=== PATIENT | female | born 1970 | race African-American/Black ===

== ENCOUNTER → 2016-12-29 | Outpatient (CLI) | payer OTHER ==
[~2016-12-29] VITALS: Ht 175.3 cm; Wt 116.1 kg
[~2016-12-29] MED LIST: ADVAIR HFA 230M12 GM INH; JANUVIA50 MG PO; NEURONTIN 300300 M1 PO; PROAIR HFA8.5 GM INH; SAVELLA25 MG PO; VALSARTAN-HCTZ1 EAC1 PO; ZOLPIDEM TARTRA10 MG PO
--- NOTE | ~2016-12-29 | HPC ---
[facility] [place] [address] PAIN MANAGEMENT CONSULTATION Name: YANA PLASENCIA Room #: REG [facility] Aleena#: [id number] Admission: 12/29/16 Attend Phys: Caesar Devine DO Discharge: Date of : 66 Report #: [id number] THIS REPORT FOR: //name// CC: Antionette Devine DATE OF SERVICE: 12/29/2016 The patient is a pleasant 46-year-old female seen in consultation 12/05/2016 diagnosed with symptomatic cervical radiculopathy. She was given 1 cervical epidural injection at that time. She had good transient relief with the injection, but symptoms are recurring. Pain is in the neck, shoulder and arm. PHYSICAL EXAMINATION: Shows positive Lhermitte's. Vital signs are stable as noted in the EMR. There are no recent diagnostic studies available to evaluate. ASSESSMENT: Symptomatic cervical radiculopathy. RECOMMENDATION: Discussion with the patient today therapeutic options. She elected to proceed with repeat epidural injection under fluoroscopy today. I will order another MRI of the cervical spine. Will follow up in approximately 2-3 weeks to evaluate efficacy of interventional therapy and to review diagnostic findings. ASSESSMENT: Symptomatic cervical radiculopathy. PROCEDURE: Cervical epidural injection under fluoroscopy. PROCEDURE: Cervical epidural steroid injection under fluoroscopy. PROCEDURE NOTE: After written and informed consent was obtained including risk of dural puncture, spinal cord trauma, paralysis and increased pain, the patient was taken to the fluoroscopy suite and placed in the prone position, with appropriate abdominal bolstering, neck was flexed, palms under the thighs. Skin was prepped with ChloraPrep. Sterile draping was applied. Skin wheal with 1% Xylocaine was raised. A 22-gauge 3-1/2 inch epidural Tuohy needle was placed via a midline approach at the C7-T1 interspace, advanced under biplanar fluoroscopy using continuous loss of resistance. With appropriate loss of resistance at the expected depth on lateral view, the glass loss of resistance syringe was disconnected. A low volume extension tubing was connected to the needle and a 5 mL syringe. Negative aspiration for cerebrospinal fluid or blood was noted. A 1 mL of Omnipaque was injected which showed spread within the epidural space on biplanar fluoroscopy. This was followed with 80 mg of triamcinolone plus 1 mL of 1.5% preservative Xylocaine. Needle was withdrawn to [address] [address] PAIN MANAGEMENT CONSULTATION Name: YANA PLASENCIA Room #: REG MONI Flood#: [id number] Admission: 12/29/16 Attend Phys: Caesar Devine DO Discharge: Date of : 66 Report #: [id number] the interspinous ligament, 0.5 mL of Xylocaine was used to flush the needle. The needle was then completely withdrawn. The area was cleansed. Band-Aid was applied. The patient was allowed to move off the procedure table and ambulated to the recovery room, monitored for an appropriate period of time, discharged in good and stable condition. <ELECTRONICALLY SIGNED> By: Caesar Devine DO 12/30/16 [id number] Caesar Devine DO /nt
[2016-12-29 14:14] VITALS: BP 146/87
== END | disposition home or self-care (01) ==
LOC: PAIN 12-26 10:55
DX: M54.12 Radiculopathy, cervical region (principal); G89.29 Other chronic pain; Z87.891 Personal history of nicotine dependence

== ENCOUNTER → 2017-01-30 | Outpatient (CLI) | payer OTHER | LOC: MRI 03:28 | DX: M47.22 Other spondylosis with radiculopathy, cervical region (principal); M25.78 Osteophyte, vertebrae; M54.2 Cervicalgia; M25.519 Pain in unspecified shoulder ==

== ENCOUNTER → 2017-01-30 | Outpatient (CLI) | payer OTHER ==
[~2017-01-30] VITALS: Ht 175.3 cm; Wt 116.8 kg
--- NOTE | ~2017-01-30 | HPC ---
[facility] [place] [address] PAIN MANAGEMENT CONSULTATION Name: YANA PLASENCIA Room #: REG James Flood#: [id number] Admission: 01/30/17 Attend Phys: Caesar Devine DO Discharge: Date of : 66 Report #: [id number] THIS REPORT FOR: //name// CC: Antionette Devine The patient is a 46-year-old female last seen in the pain clinic on 12/05/2016. She was given a second cervical epidural injection at that time. She has gotten good relief with the first injection with relief was somewhat transient. We repeated the injection and ordered an MRI. Returns to the pain clinic today noting second injection, again afforded 60% relief for 2 weeks. She is better able to do activities with less pain, but does rate pain up to 7/10. The pain is in the neck, both shoulders and arms with a chronic nature with flare up since October. She has some radiation into her elbows and occasionally into her hands. PHYSICAL EXAMINATION: Shows 46-year-old female, BMI is 38 kilograms per meter squared. Vital signs stable as noted in the EMR. Cervical range of motion is full, but has neck pain with flexion and extension. Upper extremity strength is preserved. Deep tendon reflexes are symmetric. Tinel's is negative. Hand grasp is adequate. 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 There is an asymmetric spur with cord contact to the right at C4-C5, small disk osteophyte complex also to the right seen at C5-C6 with cord contact to that deformity. ASSESSMENT: Symptomatic cervical radiculopathy but clinical exam collaborated with MRI findings though they are fairly nominal and physical exam is fairly nominal. At this time, the patient does have subjective pain. We talked about offering the patient counseled with neurosurgery if symptoms came more problematic if she develops any myelopathic or radicular symptoms, though presently recommend continue ice, heat, nonsteroidal anti-inflammatory medication. RECOMMENDATIONS: P.r.n. gabapentin 300 mg at bedtime and follow up with pain clinic if radicular symptoms become terribly problematic. Thank you for allowing me to participate in this patient's care. I will keep you abreast of her progress. By: [id number] Caesar Devine DO /nt
[2017-01-30 13:39] VITALS: BP 128/82
== END ==
LOC: PAIN 06:49
DX: M54.12 Radiculopathy, cervical region (principal); M48.02 Spinal stenosis, cervical region; I10 Essential (primary) hypertension; F32.9 Major depressive disorder, single episode, unspecified; Z87.891 Personal history of nicotine dependence

== ENCOUNTER → 2020-04-24 | Outpatient (CLI) | payer OTHER | LOC: RAD 10:42 | PROVIDERS: ATTEND Nurse Practitioner | DX: M48.061 Spinal stenosis, lumbar region without neurogenic claudication (principal); M54.40 Lumbago with sciatica, unspecified side ==

== ENCOUNTER → 2020-08-10 | Outpatient (CLI) | payer OTHER | LOC: ULTRA 15:27 | PROVIDERS: ATTEND Nurse Practitioner | DX: M79.631 Pain in right forearm (principal) ==